=== PATIENT | male | born 1965 | race Asian ===

== ENCOUNTER 2022-11-30 17:12 | Emergency (ER) | payer OTHER ==
[~2022-11-30] VITALS: Ht 170.2 cm; Wt 63.0 kg
[~2022-11-30 17:12] MED LIST: NAPROXEN EC375 MG OR; NO MEDS; PRILOSEC OTC20 MG OR; REGLAN10 MG PO
[2022-11-30 19:07] LABS: BASO% 0.3 % (0-3); EOS% 0.1 % (0-8); IMMATURE GRANULOCYTES 0.2 % (0.0-5.0); LYMPH% 8.1 % (15-41); MEAN CELL VOLUME 89.5 fL CALC (80.0-100.0); MEAN CORPUSCULAR HGB 29.9 pG CALC (26.0-32.0); MEAN CORPUSCULAR HGB CONC 33.4 g/dL CAL (32.0-36.0); MONO% 6.3 % (2-13); NEUT# 9.59 thou/uL (1.82-7.42); RED BLOOD COUNT 5.15 mill/uL (4.70-6.10); RED CELL DISTRI WIDTH 12.1 % (11.5-15.5)
[2022-11-30 19:08] LABS: HEMATOCRIT 46.1 % (39.0-50.0); HEMOGLOBIN 15.4 g/dl (14.0-18.0)
[2022-11-30 19:19] LABS: ALKALINE PHOSPHATASE 72 u/l (38-126); BUN 27 mg/dL (9-20); BUN/CREATININE RATIO 19 (12-20 (CALC)); CARBON DIOXIDE 28 mmol/l (22-30); CHLORIDE 100 mmol/l (95-108); CPK 375 u/l (55-170); CREATININE 1.4 mg/dL (0.7-1.3); GFR FOR AFR.AMER. > 60 ML/MIN (>=60 (CALC)); GFR OTHER RACES 53 ML/MIN (>=60 (CALC)); SGOT/AST 33 u/l (17-59); SODIUM 139 mmol/l (137-146)
[2022-11-30 19:21] LABS: ALBUMIN 5.2 g/dL (3.2-5.0); ANION GAP 17 (6-22 (CALC)); BILIRUBIN, TOTAL 0.6 mg/dL (0.2-1.3); POTASSIUM 5.5 mmol/l (3.5-5.1); TOTAL PROTEIN 9.1 g/dL (6.3-8.2)
[2022-11-30 19:49] LABS: URINE BILIRUBIN - DIPSTICK Negative (NEGATIVE); URINE BLOOD DIPSTICK Negative (NEGATIVE); URINE COLOR Yellow; URINE GLUCOSE - DIPSTICK Negative (NEGATIVE); URINE KETONE Negative (NEGATIVE); URINE LEUK ESTERASE Negative (NEGATIVE); URINE NITRITE - DIPSTICK Negative (Negative); URINE PH 5.5 (4.5-8.0); URINE PROTEIN - DIPSTICK 100 mg/dL (NEG-TRACE); URINE SPECIFIC GRAVITY >=1.030; URINE UROBILINOGEN - DIPSTICK 0.2 E.U./dL (0.2)
[2022-11-30 19:57] LABS: URINE RBC 0-2 RBC/hpf (0-5); URINE WBC 0-2 WBC/hpf (0-5)
[2022-11-30 21:35] VITALS: BP 125/89
== END 2022-11-30 21:35 | disposition home or self-care (01) | DRG 641 ==
LOC: ED 17:12
PROVIDERS: Family Medicine; Nurse Practitioner
DX: E86.0 Dehydration (principal)

== ENCOUNTER 2023-01-05 05:08 | Emergency (ER) | payer OTHER ==
[~2023-01-05] VITALS: Ht 170.2 cm; Wt 68.0 kg
[2023-01-05] VITALS (12 sets, daily range): BP systolic 108–122; BP diastolic 70–82
[2023-01-05 06:00] LABS: BASO% 0.2 % (0-3); EOS% 1.6 % (0-8); IMMATURE GRANULOCYTES 0.1 % (0.0-5.0); LYMPH% 10.7 % (15-41); MEAN CELL VOLUME 91.7 fL CALC (80.0-100.0); MEAN CORPUSCULAR HGB 30.3 pG CALC (26.0-32.0); MEAN CORPUSCULAR HGB CONC 33.1 g/dL CAL (32.0-36.0); MONO% 8.2 % (2-13); NEUT# 7.33 thou/uL (1.82-7.42); NEUT% 79.2 % (42-76); RED BLOOD COUNT 4.32 mill/uL (4.70-6.10); RED CELL DISTRI WIDTH 12.4 % (11.5-15.5)
[2023-01-05 06:02] LABS: HEMATOCRIT 39.6 % (39.0-50.0); HEMOGLOBIN 13.1 g/dl (14.0-18.0)
[2023-01-05 06:19] LABS: ALBUMIN 4.3 g/dL (3.2-5.0); ALKALINE PHOSPHATASE 78 u/l (38-126); ANION GAP 11 (6-22 (CALC)); BILIRUBIN, TOTAL 0.5 mg/dL (0.2-1.3); BUN 16 mg/dL (9-20); BUN/CREATININE RATIO 18 (12-20 (CALC)); CARBON DIOXIDE 27 mmol/l (22-30); CHLORIDE 101 mmol/l (95-108); CPK 142 u/l (55-170); CREATININE 0.9 mg/dL (0.7-1.3); GFR FOR AFR.AMER. > 60 ML/MIN (>=60 (CALC)); GFR OTHER RACES > 60 ML/MIN (>=60 (CALC)); POTASSIUM 4.1 mmol/l (3.5-5.1); SGOT/AST 46 u/l (17-59); SODIUM 135 mmol/l (137-146); TOTAL PROTEIN 7.5 g/dL (6.3-8.2)
== END 2023-01-05 08:56 | disposition home or self-care (01) | DRG 313 ==
LOC: ED 05:08
PROVIDERS: Emergency Medicine
DX: R07.9 Chest pain, unspecified (principal)
CPT/HCPCS: Q9967